=== PATIENT | male | born 1980 | race Two or more races ===

== ENCOUNTER 2021-04-11 10:35 | Emergency (ER) | payer BC ==
[~2021-04-11] VITALS: Ht 160 cm; Wt 59.0 kg
--- NOTE | 2021-04-11 10:48 | NUR ---
PATIENT HERE FOR EPISODE OF N/V SINCE LAST NIGHT; NOW RESOLVED. PALPITATIONS SINCE LAST NIGHT. AWAITING MD CHAVEZ. O SOB. ALERT ORIENTED X 4
[2021-04-11] MEDS ORDERED: LORAZEPAM INJ 2 MG/ML VIAL IM ONE (11:00)
[2021-04-11] MEDS ORDERED: LORAZEPAM INJ 2 MG/ML VIAL ONE (11:01)
[2021-04-11] MEDS ORDERED: CHLO25CA22 PO (11:38)
--- NOTE | 2021-04-11 11:49 | NUR ---
Patient discharged to home in stable condition. Written and verbal after care instructions given. Patient verbalizes understanding of instruction.
[2021-04-11 11:50] VITALS: BP 120/80
== END 2021-04-11 11:51 | disposition home or self-care (01) ==
LOC: ER 10:35
DX: F10.239 Alcohol dependence with withdrawal, unspecified (principal); Y90.9 Presence of alcohol in blood, level not specified
CPT/HCPCS: 96372; 99283; J2060

== ENCOUNTER 2022-11-03 01:12 | Emergency (ER) | payer BC ==
[~2022-11-03] VITALS: Ht 162.6 cm; Wt 59.0 kg
[~2022-11-03 01:12] MED LIST: CHLO25CA22 PO
--- NOTE | 2022-11-03 01:30 | NUR ---
[id number] FROM [facility], [facility], PT WAS FLACCID WHEN [employer]PERATOR ARRIVED. BECAME MORE ALERT WHEN HE WAS BEING TRANSPORTED IN ER. PT AAO X 4, ABLE TO ANSWER QUESTIONS, COOPERATIVE, BREATHING UNLABORED. PT ATTACHED TO MONITOR AND PULSE OX. AWAITING MD CHAVEZ.
--- NOTE | 2022-11-03 01:35 | NUR ---
URINE COLLECTED, SENT TO LAB
--- NOTE | 2022-11-03 02:55 | NUR ---
pt is ambulatory on steady gait and able to go to the rest room on his own. pt also tolereted po challenge. md elisabeth stafford
--- NOTE | 2022-11-03 03:06 | NUR ---
Patient discharged to home in stable condition. Written and verbal after care instructions given. Patient verbalizes understanding of instruction. Pt ambulatory with a steady gait
[2022-11-03 03:07] VITALS: BP 117/75
== END 2022-11-03 03:07 | disposition home or self-care (01) ==
LOC: ER 01:13
DX: F10.129 Alcohol abuse with intoxication, unspecified (principal); Y90.9 Presence of alcohol in blood, level not specified